=== PATIENT | male | born 1955 | race Caucasian/White ===

== ENCOUNTER 2020-12-25 09:35 | Outpatient (CLI) | payer MEDICARE, SELFPAY ==
--- NOTE | 2020-12-25 08:45 | DI.RAD_ITS ---
Exam(s) XR ANKLE LT COMPLETE EXAM: XR ANKLE LT COMPLETE CLINICAL HISTORY: left ankle pain. TECHNIQUE: 2D digital imaging was performed. COMPARISON: No exams were available for comparison FINDINGS: There is no evidence of acute fracture. No widening of the mortise. Some degenerative changes are n oted in the tibiotalar joint, mostly medially and also anteriorly. Subtalar joint appears unremarkab le. No osseous tarsal coalition. A prominent os trigonum is noted posteriorly. Calcification is no kumar in the plantar fascia approximately 1 cm anterior to the inferior calcaneal spur. IMPRESSION: DATA REPOSITORY: RADIATION DOSE DELIVERED:
--- NOTE | 2020-12-25 08:45 | DI.RAD_ITS ---
Exam(s) XR KNEE LT 4V AP,LAT,DELIA,PAT EXAM: XR KNEE LT 4V AP,LAT,DELIA,PAT CLINICAL HISTORY: left knee pain. TECHNIQUE: 2D digital imaging was performed. COMPARISON: No exams were available for comparison FINDINGS: Five views of the left knee reveal no evidence of fracture. There is a small joint effusion. There are significant osteoarthritic degenerative changes. There is moderate narrowing of the lateral comp artment. Mild narrowing of the medial compartment. Severe degenerative changes are noted in the pat ellofemoral compartment, mostly in the lateral aspect of this compartment. There is [id number] adrian osition this level and there is approximately 1 centimeter lateral deviation of the patella relative to the intercondylar fossa. Are also marginal osteophytes off both sides of the patella, lateral lar michaela than medial. There is also a 5 x 4 millimeter calcific density seen just posterior to the latera l patellar osteophyte. This is best seen on the merchant's view. IMPRESSION: Significant degenerative changes as described above. DATA REPOSITORY: RADIATION DOSE DELIVERED:
== END 2020-12-25 09:36 | disposition home or self-care (01) ==
LOC: DIORS 09:36
PROVIDERS: PCP Family Medicine; Referring Provider Family Medicine; Visit Provider Student in an Organized Health Care Education/Training Program
DX: M25.562 Pain in left knee (principal); M25.572 Pain in left ankle and joints of left foot; M22.8X2 Other disorders of patella, left knee; M17.12 Unilateral primary osteoarthritis, left knee; M24.072 Loose body in left ankle; X58.XXXA Exposure to other specified factors, initial encounter
CPT/HCPCS: 99203; 73564; 73610

== ENCOUNTER 2021-01-23 01:30 | Outpatient (CLI) | payer MEDICARE, SELFPAY ==
--- NOTE | 2021-01-23 06:45 | DI.MRI_ITS ---
Exam(s) MR LOWER JOINT LT WO EXAM: MR LOWER JOINT LT WO CLINICAL HISTORY: LT KNEE DJD, KNEE PAIN, LOOSE BODY LT ANKLE,M24.072,M17.12 TECHNIQUE: Multiplanar multisequence MRI was performed without intravenous contrast. COMPARISON: CR XR ANKLE LT COMPLETE from 12/25/2020 CR XR ANKLE LT COMPLETE from 12/25/2020 FINDINGS: BONES/JOINTS: No fracture or contusion pattern. There is marrow edema and subchondral cyst in the lat eral process of the talus and its articulation with the lateral calcaneus. There is also mild subcho ndral edema at the posterior talocalcaneal articulation. There are also subchondral cysts seen in th e distal fibula. Degenerative signal changes are also seen at the 2nd TMT joint. The talar dome is smooth. The ankle mortise is maintained. No joint effusion is present. LIGAMENTS: The tibiofibular and calcaneofibular ligaments are intact. There is a sprain of the steward/stewardess room ior talofibular ligament. The anterior talofibular ligament is intact. The deltoid ligament is inta ct. The syndesmosis is unremarkable. Sinus tarsi is normal. MUSCULOTENDINOUS STRUCTURES: Achilles tendon: There is mild hyperintense signal seen in the distal Achilles tendon which may refle ct a small tear versus degeneration. Plantar fascia: Unremarkable. Anterior Extensor tendons: Unremarkable. Posterior Tibialis: Unremarkable. Flexor Digitorum longus: Unremarkable. Flexor Hallucis longus: There is a complete tear of the flexor hallucis longus tendon. The proximal tendon in the lies approximately 3.3 cm above the talar dome best appreciated on the sagittal images. The distal tendon segment is seen on the plantar surface of the foot inferior to the sustentacular ryan (series 7001, image 25). Peroneus longus: Unremarkable. Peroneus brevis:Unremarkable. SOFT TISSUES: Unremarkable. OTHER FINDINGS: No loose body is appreciated within the ankle joint. There is a small amount of flui d seen around the prominent os trigonum, but there is normal marrow signal of the ossicle. IMPRESSION: 1. Complete tear of the flexor hallucis longus tendon with large gap between the tendon ends as descr ibed above. 2. Findings suspicious for partial tear or degeneration of the Achilles tendon. 3. No loose body is seen in the ankle joint. 4. Degenerative changes in the foot and ankle as described. 5. Findings suspicious for sprain of the posterior talofibular ligament. DATA REPOSITORY:
== END 2021-01-23 01:50 ==
PROVIDERS: PCP Family Medicine; Visit Provider Student in an Organized Health Care Education/Training Program
DX: M17.12 Unilateral primary osteoarthritis, left knee (principal); M24.072 Loose body in left ankle; S96.912A Strain of unspecified muscle and tendon at ankle and foot level, left foot, initial encounter; M19.072 Primary osteoarthritis, left ankle and foot
CPT/HCPCS: 73721

== ENCOUNTER → 2021-01-26 09:35 | Outpatient (BNVA) | payer MEDICARE, SELFPAY | PROVIDERS: PCP Family Medicine; Referring Provider Family Medicine; Visit Provider Student in an Organized Health Care Education/Training Program | DX: M17.12 Unilateral primary osteoarthritis, left knee (principal); Q68.8 Other specified congenital musculoskeletal deformities; S96.092 Other injury of muscle and tendon of long flexor muscle of toe at ankle and foot level, left foot; X58.XXXD Exposure to other specified factors, subsequent encounter | CPT/HCPCS: 20610; J1040 ==

== ENCOUNTER 2021-02-08 02:10 | Outpatient (CLI) | payer MEDICARE, SELFPAY ==
--- NOTE | 2021-02-08 10:01 | DI.RAD_ITS ---
Exam(s) XR FINGER RT LITTLE EXAM: XR FINGER RT LITTLE CLINICAL HISTORY: RT 5TH MALLET FINGER, ? ASSOCIATED FX,M20.011. TECHNIQUE: 2D digital imaging was performed. COMPARISON: No exams were available for comparison FINDINGS: No evidence of fracture or dislocation. There is an element of flexion deformity at the DIP joint of the 5th finger. There is no associated fracture. No osseous lesions. Incidentally noted is degenerative change in the proximal interphalangeal joint of the 5th finger. A lso within the metacarpophalangeal joint of the 3rd-middle finger. IMPRESSION: DATA REPOSITORY: RADIATION DOSE DELIVERED:
== END 2021-02-08 02:30 ==
PROVIDERS: PCP Family Medicine; Visit Provider Family Medicine
DX: M20.011 Mallet finger of right finger(s) (principal); M19.041 Primary osteoarthritis, right hand
CPT/HCPCS: 73140

== ENCOUNTER 2021-12-03 14:17 | Outpatient (CLI) | payer MEDICARE, SELFPAY ==
--- NOTE | 2021-12-03 13:15 | DI.RAD_ITS ---
Exam(s) XR KNEE LT 1V XR STANDING ALIGNMENT EXAM: XR STANDING ALIGNMENT and XR knee LT 1 V CLINICAL HISTORY: TKA planning. TECHNIQUE: 2D digital imaging was performed. Five images were obtained. COMPARISON: CR XR KNEE LT 4V AP,LAT,DELIA,PAT from 12/25/2020 FINDINGS: BONES: The patient has bilateral total hip replacements. Mild degenerative changes are seen in the r ight knee with joint space narrowing and periarticular spurring. The findings are most marked in the medial femoral tibial joint. In the left knee there is periarticular spurring in all 3 joint compar tments. There is moderate narrowing of the lateral femoral tibial joint. There is a moderate joint effusion. The ankles are well maintained.There is no significant leg length discrepancy. SOFT TISSUE: Normal. IMPRESSION: Osteoarthritis of the knees bilaterally, left greater than right. DATA REPOSITORY: RADIATION DOSE DELIVERED:
== END 2021-12-03 14:18 | disposition home or self-care (01) ==
LOC: DIORS 14:18
PROVIDERS: PCP Family Medicine; Referring Provider Family Medicine; Visit Provider Physician Assistant
DX: M17.12 Unilateral primary osteoarthritis, left knee (principal); Z95.5 Presence of coronary angioplasty implant and graft
CPT/HCPCS: 99213; 73560; 77073

== ENCOUNTER → 2022-01-24 14:02 | Outpatient (BNVA) | payer MEDICARE, SELFPAY | PROVIDERS: PCP Family Medicine; Referring Provider Family Medicine; Visit Provider Physician Assistant | DX: M17.12 Unilateral primary osteoarthritis, left knee (principal) | CPT/HCPCS: 99213 ==

== ENCOUNTER 2022-01-28 02:33 | Outpatient (CLI) | payer MEDICARE, SELFPAY ==
[2022-01-28 11:01] LABS: HCT 35.4 % (40.0-50.0); HGB 12.3 g/dL (13.5-17.5); MCH 31.9 pg (27.0-33.0); MCHC 34.7 % (32.0-36.0); MCV 92 fL (80-95); MPV 8.6 fL (8.0-11.0); Platelet Count 129 10^3/uL (130-400); RBC 3.86 10^6/uL (4.36-5.78); RDW 13.1 % (11.8-14.1); RDW-SD 43.3 fL; WBC 6.52 10^3/uL (4.4-10.8)
[2022-01-28 11:32] LABS: Anion Gap 6.3 mmol/L (3-11); BUN 26 mg/dL (7-18); CO2 26.7 mmol/L (21.0-32.0); CREATININE 1.3 mg/dL (0.70-1.30); Calcium 9.3 mg/dL (8.5-10.1); Chloride 104 mmol/L (98-107); Estimated GFR 60.21 (mL/min/1.73m2); Glucose 123 mg/dL (74-106); Potassium 4.1 mmol/L (3.5-5.1); Sodium 137 mmol/L (136-145)
== END 2022-01-28 02:34 | disposition home or self-care (01) ==
LOC: LBO 02:34
PROVIDERS: PCP Family Medicine; Visit Provider Student in an Organized Health Care Education/Training Program
DX: M17.12 Unilateral primary osteoarthritis, left knee (principal); Z01.818 Encounter for other preprocedural examination
CPT/HCPCS: 36415; 80048; 85027

== ENCOUNTER 2022-01-29 09:43 | Day surgery (SDC) | payer MEDICARE, SELFPAY ==
[2022-01-29] VITALS (9 sets, daily range): BP systolic 113–153; BP diastolic 55–77; PULSE 46–59; RESP 11–18; TEMP 35.9–37; O2SAT 97–99; BMI 43.3
[2022-01-29] MEDS: Gabapentin 300 MG CAP PO (10:44)
[2022-01-29] MEDS: Acetaminophen 500 MG TAB 1000 MG PO (10:44)
[2022-01-29] MEDS: Celecoxib 200 MG CAP 400 MG PO (10:45)
[2022-01-29] MEDS: Lactated Ringers 1,000 ML 80 ML IV (10:58)
--- NOTE | 2022-01-29 11:15 | W.ANESPRE ---
General Info Date of Service Date Performed: 01/29/22 Height: 5 ft 5.2 in Weight: 118.8 kg Body Mass Index (BMI): 43.3 Surgical Procedure: Operation Date: 01/29/22 13:10 Proposed Procedure Side Surgeon p Knee Total Arthroplasty w/OrthoAlign Cementless PS Left River Corado MD Meds Allergies and Home Medications Allergies Allergy/AdvReac Type Severity Reaction Status Date / Time atorvastatin calcium AdvReac Per pt, Verified 01/29/22 10:16 [From Lipitor] states myalgia hydrochlorothiazide AdvReac Per pt. Verified 01/29/22 10:16 states: affects his spleen causing jaundice, and h Home Medication Medication Instructions Recorded Ezetimibe/Simvastatin 1 ea PO DAILY 03/17/17 [Ezetimibe-Simvastatin 10-80 mg] Nitrostat 0.4 mg sublingual tablet 0.4 mg sublingual DIRECTED 03/17/17 (nitroglycerin) aspirin 325 mg tablet 325 mg PO DAILY 03/17/17 atenolol 50 mg tablet 25 mg PO BID 03/17/17 clopidogrel 75 mg tablet 75 mg PO DAILY 03/17/17 lisinopril 20 mg tablet 20 mg PO DAILY 03/17/17 multivitamin 1 ea PO DAILY 03/17/17 ferrous sulfate 142 mg (45 mg 142 mg PO DAILY 01/24/22 iron) tablet,extended release (Slow Release Iron) Current Visit Medications: Current Medications Generic Name Dose Route Start Last Admin Trade Name Freq PRN Reason Stop Dose Admin Acetaminophen 1,000 mg 01/29/22 06:00 01/29/22 10:44 Acetaminophen 500 Mg Tab PO 01/29/22 18:00 1,000 mg PREOP OSVALDO Administration Celecoxib 400 mg 01/29/22 06:00 01/29/22 10:45 Celecoxib 200 Mg Cap PO 01/29/22 18:00 400 mg PREOP OSVALDO Administration Gabapentin 300 mg 01/29/22 06:00 01/29/22 10:44 Gabapentin 300 Mg Cap PO 01/29/22 18:00 300 mg PREOP OSVALDO Administration Tranexamic Acid 1,000 mg/ 60 mls @ 360 mls/hr 01/29/22 06:00 Sodium Chloride IVPB 01/29/22 18:00 PREOP OSVALDO Ringer's Solution 1,000 mls @ 80 mls/hr 01/29/22 06:00 01/29/22 10:58 IV 02/27/22 23:59 80 mls/hr INFUSION OSVALDO Administration Cefazolin Sodium/Dextrose 2 gm in 50 mls @ 100 mls/hr 01/29/22 06:00 Ancef Duplex IVPB 01/29/22 16:00 PREOP OSVALDO IV Miscellaneous Supplies 1 each 01/29/22 06:00 Iv Access IV 02/27/22 23:59 DIRECTED OSVALDO Sodium Chloride 0 ml 01/29/22 06:00 Normal Saline Flush 10 Ml Syr IV 02/27/22 23:59 PRN PRN Sodium Chloride 0 ml 01/29/22 06:00 Normal Saline 10 Ml Vial IJ 02/27/22 23:59 DIRECTED PRN Sterile Water 0 ml 01/29/22 06:00 Water,Injection,Sterile 10 Ml Vial IJ 02/27/22 23:59 DIRECTED PRN PFSH Active Problems Active Problems: Problem Status Onset Code 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 01/29/22 pt reports he has expereinced some delay coming out of anesthesia. Surgical History Surgical History (Updated 01/29/22 @ 11:06 by Eun Mosquera RN) Biopsy, Soft Tissue (04/03/17) left arm - benign verruciform keratosis Coronary Stent 01/29/22 pt reports he has had 4 stents, 2000, 2010, 2013 H/O total hip arthroplasty Repair, Undescended Testicle Total replacement of hip right left Tobacco Smoking/Tobacco Use Status: Never Alcohol Alcohol Intake: current Alcohol intake frequency: 0-2 drinks per day Alcohol type: beer Substance Use Substance use: Never Substance use type: does not use Vital Signs and Lab Results Vital Signs Most Recent Vital Signs in EMR: Most Recent Vital Signs Temp Pulse Resp BP Pulse Ox 36.5 C 46 L 16 138/58 L 98 01/29/22 10:21 01/29/22 10:21 01/29/22 10:21 01/29/22 10:21 01/29/22 10:21 Lab Results Blood Type / Crossmatch: No Data to Display Complete Blood Count: White Blood Count 6.52 10^3/uL (4.4-10.8) 01/28/22 10:53 Red Blood Count 3.86 10^6/uL (4.36-5.78) L 01/28/22 10:53 Hemoglobin 12.3 g/dL (13.5-17.5) L 01/28/22 10:53 Hematocrit 35.4 % (40.0-50.0) L 01/28/22 10:53 Platelet Count 129 10^3/uL (130-400) L 01/28/22 10:53 Complete Metabolic Panel: Sodium 137 mmol/L (136-145) 01/28/22 10:53 Potassium 4.1 mmol/L (3.5-5.1) 01/28/22 10:53 Chloride 104 mmol/L (98-107) 01/28/22 10:53 Carbon Dioxide 26.7 mmol/L (21.0-32.0) 01/28/22 10:53 BUN 26 mg/dL (7-18) H 01/28/22 10:53 Creatinine 1.3 mg/dL (0.70-1.30) 01/28/22 10:53 Est GFR (CKD-EPI 2020) 60.21 (mL/min/1.73m2) 01/28/22 10:53 Calcium 9.3 mg/dL (8.5-10.1) 01/28/22 10:53 Glucose 123 mg/dL (74-106) H 01/28/22 10:53 Liver Function Panel: No Data to Display Coagulation Panel: No Data to Display Cardiac Panel: No Data to Display Arterial Blood Gas: No Data to Display Venous Blood Gas: No Data to Display Pancreas Panel: No Data to Display Thyroid Panel: No Data to Display Infectious Disease: No Data to Display Blood Cultures: No Data to Display Toxicology Panel: No Data to Display Imaging and Studies Imaging and Studies Study information below may be from another EMR and interpreted by another provider. Please see original notes in EMR for more complete details. Stress Test Summary: 01/18/2022: Myocardial perfusion images show infero-apical fixed defect, no reversible ischemia. No significant changes from previous. Echocardiogram Summary: 08/28/2021: EF 59%, Grade II diastolic dysfunction Anesthesia Assessment and Plan Anesthesia History Personal History: No History of Anesthesia Complications Family History: No Family History of Anesthesia Complications Exercise Tolerance Exercise Tolerance: Metabolic Equivalents>4 Pertinent Negatives Pertinent Negatives: No Symptoms of GERD, No Major Cardiovascular Symptoms or Complaints, No Major Pulmonary Symptoms or Complaints and No History of CVA/TIA Cardiac & Pulmonary Exam Cardiac Exam: Normal S1/S2 Heart Sounds Pulmonary Exam: Clear Bilateral Breath Sounds Implantable Cardiac Device Does patient have a Pacemaker or an ICD?: No Airway Exam Known Difficult Airway: No Mallampati Class: 3 Mouth Opening: Narrow (< 3cm) Thyromental Distance: Less than 3 cm Neck Range of Motion: Full ROM Neck Circumference: Thick Teeth Condition: Normal Dentition ASA Classification ASA Score: ASA 3 Emergency Case?: No NPO Status NPO Status: NPO Clears >2 hours, Solids >8 hours Anesthesia Plan Resuscitation Status: Full Code Anesthesia Technique: Spinal Anesthesia Airway Planned: Natural Airway Pain Management: Surgeon and patient request nerve block Monitors Used: Standard Monitors Preoperative Comments:: hx of ASCVD,cardiac stenting ( 2000,2010,2013,2014) on chronic plavix, thrombocytopenia, mild diastolic dysfunction.
[2022-01-29] MEDS: Aspirin 325 MG TAB PO (12:00)
[2022-01-29] MEDS: ceFAZolin 2 GM/50 ML BAG IVPB (12:45)
--- NOTE | 2022-01-29 13:23 | W.ANESNERVE ---
Nerve Block Single Injection Procedure Date and Time Date Performed: 01/29/22 Procedure Start: 11:30 Location Where Procedure Performed Procedure Location: Day Surgery Unit Reason Performed: Postoperative Analgesia Requesting Provider: River Corado Timeout Performed Timeout Performed: Yes Monitoring Used ECG, Blood Pressure, SpO2 and See EMR for corresponding vital signs Sterility Sterility: Hand Hygiene, Surgical Cap, Surgical Mask, Sterile Gloves, Eye Protection and Chlorhexidine Sedation Given During Procedure Sedation Given (Indicate Dose Given): No Sedation given Patient Mental Status Patient Mental Status: Awake Nerve Block 1st Nerve Block: Laterality: Left Block Type: Adductor Canal Needle / Catheter Used: 100mm SonoPlex II Local Anesthetic Bolus (Indicate Dose Given): Lidocaine used for local infiltration of skin and Bupivacaine 0.25% Dose:: 15ml Additives (Indicate Dose Given): None Ultrasound: Sterile probe cover and gel used Ultrasound Image Saved?: Yes Nerve Stimulator: Not Used Paresthesia: Left (Needle Reposition) Paresthesia Duration: Transient Procedure Tolerated: No Complications and Patient tolerated well Procedure Outcome: Successful Performed By: Shellie Rose Supervised By: Amisha Monte
--- NOTE | 2022-01-29 14:45 | W.PM.DSUDISC ---
Date of service: 01/29/22 Time of Service: 14:45 Discharge Plan Disposition Patient Disposition: HOME Condition: Good Discharge Details Reason For Visit: L TKR Attending Provider: River Corado Primary Care Provider: Suresh Jaime Home Meds and New Rx's Prescriptions: New celecoxib 200 mg capsule 200 mg PO BID Qty: 60 0RF acetaminophen 500 mg tablet 1,000 mg PO TID Qty: 90 3RF pantoprazole 40 mg tablet,delayed release (DR/EC) 40 mg PO DAILY Qty: 30 0RF dexamethasone [Decadron] 4 mg tablet 4 mg PO DAILY Qty: 2 0RF gabapentin 300 mg capsule 300 mg PO QHS Qty: 14 0RF oxycodone 5 mg tablet 5 mg PO Q4H MDD 6 tabs PRN (Reason: pain) Qty: 20 0RF Continued Slow Release Iron 142 mg (45 mg iron) tablet extended release 142 mg PO DAILY aspirin 325 MG tablet 325 mg PO DAILY lisinopril 20 MG tablet 20 mg PO DAILY clopidogrel 75 MG tablet 75 mg PO DAILY nitroglycerin [Nitrostat] 0.4 MG tablet, sublingual 0.4 mg Sublingual DIRECTED multivitamin 1 EACH capsule 1 ea PO DAILY atenolol 50 MG tablet 25 mg PO BID Ezetimibe/Simvastatin [Ezetimibe-Simvastatin 10-80 mg] 1 EACH tablet 1 ea PO DAILY Discharge Instructions Additional Instructions: Total Knee Discharge Instructions Activity: The most important activity is to walk and to work on gentle motion (both flexion and extension). You should try to take short walks a few times a day. It is important that when resting you work on keeping the knee straight. Avoid putting a pillow behind the knee as this will encourage flexion. Work on range of motion exercises as provided by Physical Therapy. - Start outpatient physical therapy within 2 weeks. - You should wear the BILLIE hose on both legs for 2 weeks. You may remove these at night. You may also use any compression sock in place of the BILLIE hose. - Utilize [employer] to review exercises, see videos on exercises and obtain basic information pertaining to your surgery and your recovery. Dressing: Remove the Mekhi wrap by 2 days after your surgery and put on the BILLIE stocking given to you from the hospital. Keep the surgical dressing (underneath the MEKHI wrap) in place for at least one week. After the first week it may be removed and replaced with light gauze and tape or nothing. The wound and dressing may get wet after 3 days but avoid soaking the dressing or otherwise it will need to be changed. Many people prefer covering the dressing with cling wrap (saran wrap) to minimize it from getting soaked. If it gets wet, just pat dry. If it starts to peel off then it will need to be changed. Medications: - You should take Tylenol and anti-inflammatory Celebrex as your primary pain control medications. If the Celebrex is too expensive or not covered, please call the office for another alternative (Advil/Ibuprofen or Naproxen/Aleve) - You have been prescribed a stronger pain medication Oxycodone for breakthrough pain, take as needed as prescribed. - You have also been prescribed a stomach acid reduction agent Pantoprozole to help reduce stomach acid and reflux. - You have been prescribed Gabapentin to take at night for restlessness and nerve pain. - You will be continuing your clopidogrel and asprin for DVT prevention unless instructed otherwise. - You have also been prescribed Decadron to take to control post-operative nausea and pain. You will start this tomorrow. - If you have constipation you should take Colace or Miralax (both [id number]). It takes most people 3-4 days to have a bowel movement. Follow-up: 2 weeks If you have any acute concerns or questions, please do not hesitate to contact the office at [phone]. You may contact Dr. Corado with any questions after hours through the hospital at [phone] or on his cell phone at [phone]. Stand Alone Forms: Anesthesia Discharge Inst., [facility].Nerve Block Instructions, [facility] ([facility]) Referrals: River Corado MD [ [facility] STAFF PHYSICIAN] - Equipment/Supplies: Walker Activity:: Activity as Tolerated Remove Dressings/Wound Care:: Do Not Remove Shower/Bathe:: 72 hours Diet:: As Tolerated Discharge Orders Discharge Orders: Discharge Order (Routine); Ordered 01/29/22 Ordered By: Mitchel Casas DS: Diagnosis Discharge Diagnosis (1) Left knee DJD: Status: Acute
--- NOTE | 2022-01-29 14:50 | W.ANESPOSTOP ---
Postoperative Evaluation Date, Time and Location Date Performed: 01/29/22 Time Performed: 14:50 Patient Location: PACU Vital Signs Most Recent Imported Vital Signs: Most Recent Vital Signs Temp Pulse Resp BP Pulse Ox 36.5 C 53 L 18 150/60 H 98 01/29/22 14:40 01/29/22 14:40 01/29/22 14:40 01/29/22 14:40 01/29/22 14:40 Pain Score Most Recent Pain Score: Most Recent Pain Score Pain Level 5 01/29/22 14:40 Assessment Mental Status: Awake (Alert & Oriented to Patient Baseline) Airway and Respiratory Function: Patent airway with normal (patient baseline) respiratory exam Cardiovascular Function: Hemodynamically Stable Hydration Status: Adequately Hydrated Nausea & Vomiting: No Nausea or Vomiting Pain: Pain is Moderate or Severe Postoperative Pain Management: Pain being addressed with medication Peripheral Nerve Block: Regional nerve block not resolved at time of post operative discharge
[2022-01-29] MEDS: Normal Saline 10 ML VIAL IJ (14:54)
[2022-01-29] MEDS: HYDROmorphone 2 MG/ML SYR IVP ×2 (14:54→15:06)
--- NOTE | 2022-01-29 15:43 | ROE_ITS ---
Date of service: 01/29/22 Time of Service: 14:00 Operative Note Operative Note DATE OF PROCEDURE: 01/29/22 PRE-OP DIAGNOSIS: Left Knee Osteoarthritis with Valgus Deformity POST-OP DIAGNOSIS: same PROCEDURE: Left Total Knee Replacement with Intraoperative Navigation SURGEON: River Corado MANUFACTURING TECH: Rica Casas ANESTHESIA TYPE: Spinal Refer to Anesthesia Record ESTIMATED BLOOD LOSS: 150 PATHOLOGY: none sent TOURNIQUET TIME: 0 COMPLICATIONS: None Patient was transported to: PACU Patient's condition: stable Implants: 1. Depuy Attune Cementless Posterior Stabilized Femoral Component, Size 7 2. Depuy Attune Cementless Rotating Platform Tibial Component, Size 6 3. Depuy Attune 7x6 PS/RP Poly 4. Depuy Attune Patellar Component, Size 38 Indications: I have seen Luis M in clinic for symptoms of LEFT knee arthritis, confirmed with radiographic findings. Luis M has exhausted nonoperative methods and was having significant limitations in daily function and desired better function and less pain. I discussed the technical details of a knee replacement. I explained the risks of the procedure to include, but not limited to, bleeding, infection, pain, stiffness, fracture, damage to nerves and vessels, damage to muscles and tendons, loosening, need for repeat procedure, blood clot and cardiopulmonary demise. Despite these risks, he elected to proceed. Findings: There was significant signs of arthritis throughout the knee involving all 3 compartments with a deficient lateral tibia. Procedure Description: Luis M was greeted in the preoperative holding area where the correct side was identified and marked. The consent was reviewed with the patient and signed. The history and physical was updated. All questions were answered. Preoperativ e mediacations were administered: Acetaminophen 1000mg, Celebrex 400mg, and Gabapentin 300mg. An adductor canal block was then administered by the anesthesia team in the PACU. Luis M was taken back to the operating room. A spinal anesthestic was then administered. The patient was placed into the supine position on the operating room table. A nonsterile tourniquet was placed high onto the leg. Posts were placed for positioning during the procedure. All bony prominences were well padded. Prophylactic antibiotics in the form of Cefazolin were administered. 1g of Tranxemic Acid was given intravenously within 30 minutes of incision. The left leg was then prepped with Chloraprep and draped in a standard fashion with impervious stockinette. A second prep with Chloraprep was performed prior to application of Iodine impregnated skin protection. A timeout to confirm correct identity, side and site, procedure, allergies, anesthesia, and medical concerns was performed. With the knee in some flexion, a midline incision was made overlying the knee. Full thickness skin flaps were raised once the extensor mechanism was encountered. These were raised medially and laterally. Any bleeding was controlled with electrocautery. Once the extensor mechanism was fully exposed, a medial parapatellar arthrotomy was performed in a flexed position. All bleeding from the arthrotomy and the geniculate arteries was coagulated. A medial subperiosteal peel was performed with electrocautery to the midcoronal plane. The fat pad was removed while keeping the patellar tendon protected. The anterior distal femur synovium was removed for later visualization. The ACL and PCL were resected and the anterior horn of the lateral meniscus was transected. The knee was then flexed with the patella everted. Large osteophytes from the tibia were removed. Large osteophytes from the femur were removed. A single starting pin was then placed 1cm anterior to the PCL insertion and the notch in the direction of the femoral head. The OrthoAlign device was applied over the pin. It was oriented to be in line with the epicondylar axis and the trochlear groove. It was then pinned into place. The navigation computer was then turned on and calibrated. The distal femur cut was set at 0 degrees varus/valgus and 2.5 degrees flexion. The distal femur cutting guide then was positioned for a 9mm cut. The distal femur was cut with an oscillating saw while protecting the soft tissues. The tibia was then addressed. The OrthoAlign device was placed over the tibial tubercle and medial tibia and secured into position. Once again, OrthoAlign was calibrated and then set for a 0 degree varus/valgus cut and 5 degrees of posterior slope. With this locked into position, the cut thickness stylus was used to assess cut thickness. The posterolateral tibia, most involved segment, was set for a 2mm cut. This was then held in position and pinned into place with 2 additional pins and a cross pin for stability. The medial and lateral collateral ligaments were protected and the cut was performed. With this completed, it was assessed and noted to be of appropriate dimensions. The guide and OrthoAlign was removed. A spacer block was inserted and the knee was brought into extension. The 6mm spacer block provided full extension, without hyperextension and with stability of both the medial and lateral collateral ligaments was assessed. The pins from the femur and the tibia were then removed. The distal femur was then sized. The anterior stylus was placed onto the lateral ridge of the anterior femur. This indicated a size 7 femur. The external rotation of the guide was adjusted to 3 degrees to match the epicondylar axis, perpendicular to [place]?s line. The 4-in-1 cutting guide was the placed. The posterior medial femur cut was evaluated and appeared of good thickness. The spacer block was inserted underneath the cutting guide and stability was confirmed in 90 degrees of flexion. An cheryl wing was used to confirm appropriate position of the anterior cut to avoid notching. This cutting guide was ensured to be flush on the cut surface and then pinned into place with headed pins. While protecting the soft tissues, quad tendon, and collateral ligaments, the anterior and posterior cuts were performed with a saw. The central two pins were removed and the posterior and anterior chamfers were cut next. The notch-cutting guide was placed. This was pinned to lateralize the femoral component as much as possible while keeping it flush on the cut surface. This was then pinned into position. A reciprocating saw was used to make the notch cut. A rasp smoothed the cut surfaces. The medial and lateral menisci were removed. A trial femoral component was then inserted, impacted down to the cut surfaces, and the lug holes were drilled. A provisional trial tibial component was placed and the knee was brought through range of motion. There was noted to be excellent extension and flexion. There was no significant instability. The patella was tracking without thumbs. A size 6mm polyethylene component provided the best range of motion and stability with less than 2mm gapping with medial and lateral stress and full extension without significant hyperextension. The tibial cut surface was fully exposed. The tibia was then sized as a 6. The tibia had been previously marked during trialing to correspond to the center of the tibial component to help with rotation. The trial was aligned to this rica, approximately rotated to the medial 1/3rd of the tibial tubercle. The trial was pinned into place. The tibia was prepared with a reamer and a keel punch and lug holes. The knee was then brought into extension and the patella was measured as 27mm but with a lateral depression only 15mm thick. Using the patellar clamp and cut guide, this was resected to a flat surface with at least 13mm of thickness remaining. The size 38 patella fit the best. This was oriented and then clamped into position. The lugs were drilled. The trial components were removed. The final components were opened on the back table. The periosteal and capsular tissues, especially posteriorly, around the knee were then systematically injected with a periarticular cocktail consisting of 246mg of Ropivacaine, 0.5mg of Epinephrine, 0.08mg of Clonidine, and 30mg of Ketorolac, diluted to 100cc. On the back table, with the implants opened, the cement was mixed. One batch of high viscosity cement was prepared with vacuum assistance. After the cement was ready a small amount was placed on the cut surface of the patella and the patellar button was clamped into position and held. While the cement was hardening, the cementless knee components were placed. Starting with the tibial component, the tibia was subluxed anteriorly and the lug holes of the component were lined up. The tibia was then impacted with an impactor and mallet until the tibial component was in contact with the tibia. Then, the femoral component was inserted. The lug holes were aligned and the component was impacted into position. The final polyethylene component was inserted. The knee was irrigated with Surgiphor Betadine solution. This was allowed to sit in the knee for 3 minutes and then it was thoroughly irrigated out with saline. After the cement had finally cured, approximately 15min, the clamp was removed from the patella and the knee was taken through range of motion. The patella was tracking with a no-thumbs technique. The capsule was then reapproximated with a No. 1 Vicryl at multiple locations. The capsule was finally closed with a No. 2 Stratafix, barbed suture. The second dosing of 1g TXA was started. Deep tissues were then reapproximated with 0 Vicryl and 2-0 Vicryl. The skin was closed with a running 3-0 Monocryl in a subcuticular fashion. This was reinforced with skin glue. A Mepilex silver dressing was applied along with a [id number] TRINITY wrap. A CryoCuff was applied. Luis M was transferred to the hospital bed without difficulty an suffering no apparent complication. Luis M has a good prognosis. Physical therapy will start today and without restrictions, weight-bearing as tolerated. His baseline Plavix and Aspirin will be used for DVT prophylaxis.
[2022-01-29] MEDS: oxyCODONE 5 MG TAB PO (15:52)
--- NOTE | 2022-01-29 16:30 | PT.INIE ---
Date of service: 01/29/22 Time of Service: 16:30 PT Notes Visit Reasons: L TKR Physical Therapy Day Surgery Initial Evaluation Date: 01/29/2022 Referring Doctor: LUIS FERNANDO Davis PT Orders: PT CONSULT: S/P Ortho Surgery Precautions: WBAT on L LE with AD. Patient Profile/Admitting Diagnosis: Hilton is a 67-year-old male with degenerative joint disease of the left knee and is status post left total knee arthroplasty on postoperative day 0. PMHX: All Active Problems?(Updated 05/21/21 @ 12:09 by Becca Madrid) Tear of right hamstring (Acute 04/25/21) Other injury of muscle and tendon of long flexor muscle of toe at ankle and foot level, left foot, initial encounter (Acute) Os trigonum syndrome (Acute) Loose body in left ankle (Acute) Left knee DJD (Acute) Maltracking of left patella (Acute) Medical History? ASCVD (arteriosclerotic cardiovascular disease) Eczema Hyperlipidemia Left knee DJD Loose body in left ankle Maltracking of left patella Mild diastolic dysfunction Mild hypertension Obesity Sleep apnea Tubular adenoma of colon Undescended testicle Surgical History? Biopsy, Soft Tissue (04/03/17) left arm - benign verruciform keratosis Coronary Stent Repair, Undescended Testicle Total replacement of hip right Social History/Home Situation: Lives alone in a mobile home with 2 steps to enter without rails. 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 Independent with all aspects prior to surgery. Has had increasing inability to manage steps prior to surgery. No falls in the past year. Son lives half an hour away can may be able to help as needed. Equipment Owned/DME: [facility], [facility] Subjective: Reports mild ache on the left hip and numbness on the sole of the left foot. Reported fatigue and mild lightheadedness at the end of session, nurse Sharron aided immediately. States that he has accessed the [employer] adrian already regarding exercises. Objective: General Observation: Supine on stretcher. TRINITY wraps to left LE. Cryocuff to left knee. TEDS on the right leg. Mental Status: Alert and oriented x4 Pain: 2-3/10 in the left knee ROM: Right Lower Extremity: Hip flexion WFL. Hip abduction WFL. Knee flexion WFL. Ankle dorsiflexion WFL. Ankle plantarflexion WFL. Left Lower Extremity: Hip flexion WFL. Hip abduction WFL. Knee flexion 10 degrees to about 100 degrees. Knee extension -10 degrees.. Ankle dorsiflexion WFL. Ankle plantarflexion WFL. Strength: Right Lower Extremity: Hip flexors 5/5. Hip abductors 5/5. Knee flexors 5/5. Knee extensors 5/5. Ankle dorsiflexors 5/5. Ankle plantarflexors 5/5. Left Lower Extremity:Hip flexors 4/5. Hip abductors 4/5. Knee flexors 3-/5. Knee extensors 3-/5. Ankle dorsiflexors 5/5. Ankle plantarflexors 5/5. Sensation: Intact test to pain and light pressure in bilateral lower extremities exam for the left sole of the foot where numbness persists Bed Mobility/Transfers: Supine to sit standby assist Sit to stand standby assist Stand to sit standby assist Bed to chair standby assist Gait: 75 feet with a 75 surface ambulation using front-wheeled walker with step-to gait pattern requiring only standby assist. Reported a mild ache in the left medial groin area and persistent numbness on the sole of the left foot. Complained of fatigue and mild lightheadedness right after activity of which nurse Mcdermott was informed. THERA EX: SLR x 10 Bilateral LAQ x 10 Seated hip flexion x 10 Quadriceps sets x 10 GLuteal sets x 10 Ankle DF/PF x 10 Balance: Static Sitting: Normal Dynamic Sitting: Normal Static Standing: Fair Dynamic Standing: Fair Special Tests: Mobility Limitations Standardized Measure [facility] AM-PAC 6 clicks Basic Mobility Inpatient Short Form: Raw Score: 24 CMS Score: 0%deficit Informed Consent/Education: Patient instructed in purpose of PT consult. Education and training on initial set of exercises that can be done at home have been completed with patient with reference to the [employer] adrian. Assessment: Patient requires the use of front wheeled walker for all mobility ADL performance reduce fall risk and maximize independence. Patient presents with clinical signs and symptoms consistent with current/admitting diagnoses that have resulted to mobility limitations, gait instability, generalized weakness, and impairment of motor control as demonstrated by the following impairment level findings: 1. Decreased strength to left knee major muscle groups 2. Impaired standing balance 3. Limitation of joint range of motion in left knee Impairments are contributing to the following functional limitations: 1. Inability to safely ambulate without assistive device 2. Increase completion time for mobility ADL performance 3. Increased fall risk Patient is assessed as a 18155 moderate complexity based on the following: History: 67-year-old female with impairment level findings, functional limitations, and past medical history as indicated above Examination: Demonstrable impairment in strength, balance, and mobility level with underlying impairments and functional limitations as documented above Presentation: Evolving Decision Makin moderate complexity Goals: N/A. PT evaluation and 1-2 treatment sessions only for functional mobility training using recommended AD and for HEP instruction. Plan of Care/Treatment Plan: N/A. PT evaluation and 1-2 treatment session only for functional mobility training using recommended AD and for HEP instruction. DISCHARGE RECOMMENDATIONS: [] Home with no services [] [] Home with services [specify] [X] Home with outpatient PT. Home when medically cleared by orthopedic surgeon. Will benefit from outpatient PT services in order to maximize functional mobility outcomes and facilitate independent community ambulation without assistive device. [] SNF for continued rehabilitation [] [] [facility] [] [] SNF versus LTC based on ability to participate and progress [] TREATMENT CODE/TIME: 9716 2 x 20 minutes, 9753 0 x 11 minutes beginning at 16:30 PM. Thank you for the opportunity to participate in the care of this patient. Dulce Dodge PT, DPT, CLT [facility] [place], [place]
== END 2022-01-29 17:17 | disposition home or self-care (01) ==
PROVIDERS: PCP Family Medicine; Visit Provider Student in an Organized Health Care Education/Training Program
PROC: (CPT 27447; principal; 2022-01-29 13:00)
DX: M17.12 Unilateral primary osteoarthritis, left knee (principal); I11.0 Hypertensive heart disease with heart failure; I50.30 Unspecified diastolic (congestive) heart failure; I25.10 Atherosclerotic heart disease of native coronary artery without angina pectoris
CPT/HCPCS: 20985; 27447; C1776; 76942; 97162; 97530; J0690; J1100; J1170; J2250; J2405; J2704

== ENCOUNTER 2022-02-08 08:17 | Outpatient (CLI) | payer MEDICARE, SELFPAY ==
--- NOTE | 2022-02-08 08:15 | DI.RAD_ITS ---
Exam(s) XR STANDING ALIGNMENT EXAM: XR STANDING ALIGNMENT CLINICAL HISTORY: 1ST POST OP L TKA. TECHNIQUE: 2D digital imaging was performed. COMPARISON: CR XR STANDING ALIGNMENT from 12/03/2021 FINDINGS: Bilateral hip prostheses again noted. There is recently placed left knee prosthesis which appears satisfactory position on this view. Ther e is mild narrowing of the medial compartment of the opposite-right knee. Ankles unremarkable. IMPRESSION: DATA REPOSITORY: RADIATION DOSE DELIVERED:
--- NOTE | 2022-02-08 08:15 | DI.RAD_ITS ---
Exam(s) XR KNEE LT 1V EXAM: XR KNEE LT 1V CLINICAL HISTORY: 1st post op L TKA. TECHNIQUE: 2D digital imaging was performed. COMPARISON: CR XR KNEE LT 1V from 12/03/2021 FINDINGS: Single lateral view: Satisfactory position alignment of the components of the prosthesis. No fractures or loosening evide nt. IMPRESSION: DATA REPOSITORY: RADIATION DOSE DELIVERED:
== END 2022-02-08 08:18 | disposition home or self-care (01) ==
LOC: DIORS 08:17
PROVIDERS: PCP Family Medicine; Referring Provider Family Medicine; Visit Provider Student in an Organized Health Care Education/Training Program
DX: Z96.652 Presence of left artificial knee joint (principal); Z47.1 Aftercare following joint replacement surgery
CPT/HCPCS: 73560; 77073

== ENCOUNTER → 2022-02-21 08:54 | Outpatient (BNVA) | payer MEDICARE, SELFPAY | PROVIDERS: PCP Family Medicine; Referring Provider Family Medicine; Visit Provider Student in an Organized Health Care Education/Training Program | DX: Z47.1 Aftercare following joint replacement surgery (principal); Z96.652 Presence of left artificial knee joint ==

== ENCOUNTER → 2022-03-07 09:11 | Outpatient (BNVA) | payer MEDICARE, SELFPAY | PROVIDERS: PCP Family Medicine; Referring Provider Family Medicine; Visit Provider Student in an Organized Health Care Education/Training Program | DX: Z47.1 Aftercare following joint replacement surgery (principal); Z96.652 Presence of left artificial knee joint ==

== ENCOUNTER 2022-04-04 01:38 | Outpatient (CLI) | payer MEDICARE, SELFPAY ==
--- NOTE | 2022-04-04 08:30 | DI.US_ITS ---
Exam(s) US LOWER EXTREMITY VENOUS LT EXAM: US LOWER EXTREMITY VENOUS LT CLINICAL HISTORY: ? DVT S/P LTKA,increased swelling, pain lt calf,m79.89 TECHNIQUE: Grayscale, color, and doppler imaging of the deep venous system of the left lower extremi ty was performed. COMPARISON: US POCUS EXAM from 01/29/2022 FINDINGS: There is no evidence of intraluminal thrombus and there is normal compression and augmentation demons trated within the common femoral vein, femoral vein, and popliteal vein. In the ipsilateral calf the interrogated veins also exhibit normal compression/ augmentation properti es. The ipsilateral saphenofemoral junction is patent. IMPRESSION: 1. No evidence of DVT in the left lower extremity. DATA REPOSITORY:
== END 2022-04-04 01:58 ==
LOC: DI 01:38
PROVIDERS: PCP Family Medicine; Visit Provider Student in an Organized Health Care Education/Training Program
DX: M79.89 Other specified soft tissue disorders (principal); Z96.652 Presence of left artificial knee joint
CPT/HCPCS: 93971

== ENCOUNTER → 2022-04-11 10:47 | Outpatient (BNVA) | payer MEDICARE, SELFPAY | PROVIDERS: PCP Family Medicine; Referring Provider Family Medicine; Visit Provider Student in an Organized Health Care Education/Training Program | DX: Z47.1 Aftercare following joint replacement surgery (principal); Z96.652 Presence of left artificial knee joint; M65.352 Trigger finger, left little finger; M65.4 Radial styloid tenosynovitis [de Quervain]; S86.112A Strain of other muscle(s) and tendon(s) of posterior muscle group at lower leg level, left leg, initial encounter; X58.XXXA Exposure to other specified factors, initial encounter | CPT/HCPCS: 20550; J1030 ==

== ENCOUNTER → 2022-05-09 10:58 | Outpatient (BNVA) | payer MEDICARE, SELFPAY | PROVIDERS: PCP Family Medicine; Referring Provider Family Medicine; Visit Provider Physician Assistant | DX: S86.112D Strain of other muscle(s) and tendon(s) of posterior muscle group at lower leg level, left leg, subsequent encounter (principal); X58.XXXD Exposure to other specified factors, subsequent encounter; M65.352 Trigger finger, left little finger; M65.4 Radial styloid tenosynovitis [de Quervain]; Z96.652 Presence of left artificial knee joint | CPT/HCPCS: 99212 ==

== ENCOUNTER 2022-07-19 09:52 | Outpatient (CLI) | payer MEDICARE, SELFPAY ==
--- NOTE | 2022-07-19 08:56 | DI.RAD_ITS ---
Exam(s) XR KNEE LT 4V AP,LAT,DELIA,PAT EXAM: XR KNEE LT 4V AP,LAT,DELIA,PAT INDICATION: left knee pain. COMPARISON: CR XR KNEE LT 4V AP,LAT,DELIA,PAT from 12/25/2020 CR XR KNEE LT 1V from 12/03/2021 CR XR STANDING ALIGNMENT from 02/08/2022 CR XR KNEE LT 1V from 02/08/2022 TECHNIQUE: 2D digital imaging was performed. Two views. FINDINGS: There has been no change in the alignment of the femoral and tibial components of the knee prosthesis . There is lateral subluxation of the patella. There is a small adjacent lateral bony density. The re is some anterior soft tissue swelling. A small joint effusion is seen. DATA REPOSITORY: RADIATION DOSE DELIVERED:
== END 2022-07-19 09:53 | disposition home or self-care (01) ==
LOC: DIORS 09:52
PROVIDERS: PCP Family Medicine; Referring Provider Family Medicine; Visit Provider Physician Assistant
DX: Z96.652 Presence of left artificial knee joint (principal); M25.462 Effusion, left knee; S83.012A Lateral subluxation of left patella, initial encounter; X58.XXXA Exposure to other specified factors, initial encounter
CPT/HCPCS: 99213; 73564

== ENCOUNTER → 2022-09-16 13:18 | Outpatient (BNVA) | payer MEDICARE, SELFPAY | PROVIDERS: PCP Family Medicine; Referring Provider Family Medicine; Visit Provider Student in an Organized Health Care Education/Training Program | DX: Z47.1 Aftercare following joint replacement surgery (principal); Z96.652 Presence of left artificial knee joint | CPT/HCPCS: 99213 ==

== ENCOUNTER → 2022-11-22 08:34 | Outpatient (BNVA) | payer MEDICARE, SELFPAY | PROVIDERS: PCP Family Medicine; Referring Provider Family Medicine; Visit Provider Student in an Organized Health Care Education/Training Program | DX: M65.4 Radial styloid tenosynovitis [de Quervain] (principal); M23.8X2 Other internal derangements of left knee; T84.84XA Pain due to internal orthopedic prosthetic devices, implants and grafts, initial encounter; Z96.652 Presence of left artificial knee joint | CPT/HCPCS: 20550; J1030 ==

== ENCOUNTER → 2023-03-13 10:08 | Outpatient (BNVA) | payer MEDICARE, SELFPAY | PROVIDERS: PCP Family Medicine; Referring Provider Family Medicine; Visit Provider Surgery | DX: L82.0 Inflamed seborrheic keratosis (principal); L91.8 Other hypertrophic disorders of the skin; L57.0 Actinic keratosis; D64.9 Anemia, unspecified; D12.6 Benign neoplasm of colon, unspecified | CPT/HCPCS: 11200; 11201; 17110; 99214 ==

== ENCOUNTER → 2023-04-03 08:52 | Outpatient (BNVA) | payer MEDICARE, SELFPAY | PROVIDERS: PCP Family Medicine; Referring Provider Family Medicine; Visit Provider Surgery | DX: L57.0 Actinic keratosis (principal); L82.0 Inflamed seborrheic keratosis; L91.8 Other hypertrophic disorders of the skin | CPT/HCPCS: 11300; 11306 ==

== ENCOUNTER 2023-04-03 09:25 | Outpatient (REF) | payer MEDICARE, SELFPAY ==
--- NOTE | 2023-04-03 09:30 | SKI_PTH ---
PATIENT: Hilton Mauro LOC: [facility] U#:[id number] AGE/SX: 68/M ROOM: RE04/03/[address]: Becca Guzman : 1955 BED: DIS: 04/03/2023 SPEC #: [id number] RECD: 04/03/23 12:55 STATUS: SALINA OLIVAREZ #: [id number] CECILIA: 04/03/23 09:[address]: Becca Guzman DEPT: Surgical Specimen RECD BY: Tayler Hanson ENTERED: 04/03/23 12:56 SP TYPE: MARTA MARTINEZ DR: Suresh Jaime Tissues: 1 - SKIN BIOPSY(SHAVE/PUNCH) Procedures: SKIN LEVEL 4 Comments: [id number]
== END 2023-04-03 09:26 | disposition home or self-care (01) ==
LOC: LBN 09:25
PROVIDERS: PCP Family Medicine; Visit Provider Surgery
DX: L82.1 Other seborrheic keratosis (principal)
CPT/HCPCS: 88305

== ENCOUNTER → 2023-04-17 14:07 | Outpatient (BNVA) | payer MEDICARE, SELFPAY | PROVIDERS: PCP Family Medicine; Referring Provider Family Medicine; Visit Provider Surgery | DX: Z48.817 Encounter for surgical aftercare following surgery on the skin and subcutaneous tissue (principal); L91.8 Other hypertrophic disorders of the skin; Z48.02 Encounter for removal of sutures ==

== ENCOUNTER → 2023-05-06 09:23 | Outpatient (BNVA) | payer MEDICARE, SELFPAY | PROVIDERS: PCP Family Medicine; Referring Provider Family Medicine; Visit Provider Podiatrist | DX: G57.81 Other specified mononeuropathies of right lower limb (principal); M79.671 Pain in right foot; M79.672 Pain in left foot | CPT/HCPCS: 20550; 64450; J0702 ==

== ENCOUNTER → 2023-05-12 04:21 | Outpatient (CLI) | payer MEDICARE, SELFPAY ==
--- NOTE | 2023-05-12 08:56 | DI.RAD_ITS ---
Exam(s) XR FOOT RT COMPLETE EXAM: XR FOOT RT COMPLETE CLINICAL HISTORY: Pain in right foot,m79.671. TECHNIQUE: 2D digital imaging was performed. Three views. COMPARISON: No exams were available for comparison FINDINGS: BONES: No acute fracture is present. No bony destructive lesion is seen. Heel spurs. Spurring at do rsum of talus. Prominent posterior spur of the calcaneus. JOINTS: No dislocation present. Severe degenerative changes 2nd tarsal metatarsal joint. Mild degen erative changes navicular cuneiform joint. SOFT TISSUE: Normal. IMPRESSION: Degenerative changes and heel spurs. DATA REPOSITORY: RADIATION DOSE DELIVERED:
--- NOTE | 2023-05-12 08:56 | DI.RAD_ITS ---
Exam(s) XR FOOT LT COMPLETE EXAM: XR FOOT LT COMPLETE CLINICAL HISTORY: Pain in left foot,m79.672. TECHNIQUE: 2D digital imaging was performed. Three views. COMPARISON: CR XR FOOT RT COMPLETE from 05/12/2023 FINDINGS: BONES: No acute fracture is present. No bony destructive lesion is seen. Heel spurs. Dorsal spurri ng at the talus. JOINTS: No dislocation present. Severe degenerative changes are noted at the 2nd tarsal metatarsal joint and posterior talocalcaneal joint. Prominent posterior ossicle. Spurring at the anterior tibi otalar joint. SOFT TISSUE: Vascular calcifications. IMPRESSION: Degenerative changes, greatest at the talocalcaneal joint. DATA REPOSITORY: RADIATION DOSE DELIVERED:
== END ==
PROVIDERS: PCP Family Medicine; Visit Provider Podiatrist
DX: M19.072 Primary osteoarthritis, left ankle and foot (principal); M19.071 Primary osteoarthritis, right ankle and foot
CPT/HCPCS: 73630; J1030

== ENCOUNTER → 2023-05-28 08:55 | Outpatient (BNVA) | payer MEDICARE, SELFPAY | PROVIDERS: PCP Family Medicine; Referring Provider Family Medicine; Visit Provider Podiatrist | DX: G57.81 Other specified mononeuropathies of right lower limb; M79.671 Pain in right foot; M79.672 Pain in left foot | CPT/HCPCS: 99214 ==

== ENCOUNTER → 2023-07-18 08:28 | Outpatient (BNVA) | payer MEDICARE, SELFPAY | PROVIDERS: PCP Family Medicine; Referring Provider Family Medicine | DX: M65.4 Radial styloid tenosynovitis [de Quervain] (principal) | CPT/HCPCS: 99212 ==

== ENCOUNTER → 2023-08-20 04:04 | Outpatient (CLI) | payer MEDICARE, SELFPAY ==
--- NOTE | 2023-08-20 | DI.US_ITS ---
Exam(s) US ABDOMEN EXAM: US ABDOMEN CLINICAL HISTORY: K76.0 Fatty Liver, ? Cirrhosis or splenomagaly in setting of TECHNIQUE: Ultrasound abdomen performed using standard protocol. COMPARISON: No priors for comparison. FINDINGS: ABDOMINAL AORTA AND IVC: Visualized portions normal caliber. PANCREAS: Normal where visualized. LIVER: There is diffuse increased echogenicity of the liver consistent with fatty infiltration. The liver measures 17.5 cm long. Hepatopetal flow in the Portal Vein. GALLBLADDER:No evidence of cholelithiasis. No evidence of wall thickening. No pericholecystic fluid i dentified. BILIARY SYSTEM: No intrahepatic biliary ductal dilation. The common bile duct could not be seen due t o overlying bowel gas. BYRNE'S SIGN: Negative. KIDNEYS: Kidneys are symmetric in size. No evidence of renal calculi. No evidence of hydronephrosis. No renal mass or cyst identified. SPLEEN: Not enlarged. ASCITES: None seen. IMPRESSION: Hepatic steatosis and mild hepatomegaly. DATA REPOSITORY:
== END ==
PROVIDERS: PCP Family Medicine; Visit Provider Family Medicine
DX: K76.0 Fatty (change of) liver, not elsewhere classified (principal)
CPT/HCPCS: 76700

== ENCOUNTER 2023-09-26 10:22 | Outpatient (CLI) | payer MEDICARE, SELFPAY | END 2023-09-26 10:23 | disposition home or self-care (01) | LOC: DIORS 10:23 | PROVIDERS: PCP Family Medicine; Referring Provider Family Medicine; Visit Provider Physician Assistant | DX: M70.62 Trochanteric bursitis, left hip (principal); Z96.642 Presence of left artificial hip joint | CPT/HCPCS: 20610; J1010 ==

== ENCOUNTER → 2023-11-20 11:13 | Outpatient (BNVA) | payer MEDICARE, SELFPAY | PROVIDERS: PCP Family Medicine; Referring Provider Family Medicine; Visit Provider Student in an Organized Health Care Education/Training Program | DX: M65.4 Radial styloid tenosynovitis [de Quervain] (principal) | CPT/HCPCS: 20550; J1010 ==

== ENCOUNTER → 2024-04-05 12:53 | Outpatient (BNVA) | payer MEDICARE, SELFPAY | PROVIDERS: PCP Family Medicine; Referring Provider Family Medicine; Visit Provider Student in an Organized Health Care Education/Training Program | DX: M65.4 Radial styloid tenosynovitis [de Quervain] (principal) | CPT/HCPCS: 20605; J1010 ==

== ENCOUNTER → 2024-07-30 08:20 | Outpatient (BNVA) | payer MEDICARE, SELFPAY | PROVIDERS: PCP Family Medicine; Referring Provider Family Medicine; Visit Provider Physician Assistant | DX: M65.4 Radial styloid tenosynovitis [de Quervain] (principal); G56.01 Carpal tunnel syndrome, right upper limb | CPT/HCPCS: 20550; 99213; J1010 ==

== ENCOUNTER → 2025-02-17 10:18 | Outpatient (BNVA) | payer MEDICARE, SELFPAY | PROVIDERS: PCP Family Medicine; Referring Provider Family Medicine; Visit Provider Physician Assistant | DX: M70.62 Trochanteric bursitis, left hip (principal) | CPT/HCPCS: 99213 ==

== ENCOUNTER 2025-03-09 10:02 | Day surgery (SDC) | payer MEDICARE, SELFPAY ==
--- NOTE | 2025-03-09 08:21 | W.ANESPRE ---
General Info Date of Service Date Performed: 03/09/25 Height: 5 ft 5 in Weight: 117.027 kg Body Mass Index (BMI): 42.9 Surgical Procedure: Operation Date: 03/09/25 13:40 Proposed Procedure Side Surgeon p Wrist ECTR Right River Corado MD s Dequervains Release Right River Corado MD Meds Allergies and Home Medications Allergies Allergy/AdvReac Type Severity Reaction Status Date / Time atorvastatin calcium (From AdvReac Per pt, Verified 03/09/25 11:06 Lipitor) states myalgia hydrochlorothiazide AdvReac Per pt. Verified 03/09/25 11:06 states: affects his spleen causing jaundice, and h Home Medication ?Medication ?Instructions ?Recorded Nitrostat 0.4 mg sublingual tablet 0.4 mg sublingual DIRECTED 03/17/17 (nitroglycerin) atenolol 50 mg tablet 25 mg PO BID 03/17/17 lisinopril 20 mg tablet 20 mg PO DAILY 03/17/17 multivitamin 1 ea PO DAILY 03/17/17 clopidogrel 75 mg tablet 75 mg PO DAILY 04/08/23 ezetimibe 10 mg-simvastatin 80 mg 1 tab PO DAILY 05/06/23 tablet levothyroxine 75 mcg capsule 50 mcg PO DAILY 04/06/24 aspirin 81 mg tablet,delayed 81 mg PO DAILY 07/30/24 release cholecalciferol (vitamin D3) 50 50 mcg PO DAILY 07/30/24 mcg (2,000 unit) capsule acetaminophen 500 mg tablet 500 mg PO ONCE 03/09/25 (Tylenol Extra Strength) hydrocodone 5 mg-acetaminophen 325 1 tab PO Q6H PRN pain #6 tabs 03/09/25 mg tablet Current Visit Medications: Current Medications Generic Name Dose Route Start Last Admin Trade Name Freq PRN Reason Stop Dose Admin Acetaminophen 1,000 mg 03/09/25 06:00 Acetaminophen 500 Mg Tab PO 03/09/25 23:59 PREOP OSVALDO Celecoxib 400 mg 03/09/25 06:00 Celecoxib 200 Mg Cap PO 03/09/25 23:59 PREOP OSVALDO Ringer's Solution 1,000 mls @ 80 mls/hr 03/09/25 06:00 IV 03/09/25 23:59 INFUSION OSVALDO Cefazolin Sodium 3,000 mg/ 100 mls @ 200 mls/hr 03/09/25 06:00 Sodium Chloride IV 03/09/25 23:59 PREOP OSVALDO Sodium Chloride 0 ml 03/09/25 06:00 Normal Saline Flush 10 Ml Syr IV 03/09/25 23:59 PRN PRN Sodium Chloride 0 ml 03/09/25 06:00 Normal Saline 10 Ml Vial IJ 03/09/25 23:59 DIRECTED PRN Sterile Water 0 ml 03/09/25 06:00 Water,Injection,Sterile 10 Ml Vial IJ 03/09/25 23:59 DIRECTED PRN PFSH Active Problems Active Problems: Problem Status Onset Code Carpal tunnel syndrome, right Acute G56.01 Trochanteric bursitis, left hip Acute M70.62 History of total left hip arthroplasty Acute Z96.642 De Quervain's tenosynovitis, right Acute M65.4 Interdigital neuroma of right foot Acute G57.81 Pain in right foot Acute M79.671 Pain in left foot Acute M79.672 Diastolic dysfunction Acute I51.89 Seasonal allergies Acute J30.2 Actinic keratoses Acute L57.0 Seborrheic keratosis, inflamed Acute L82.0 Inflamed skin tag Acute L91.8 Painful total knee replacement, left Acute T84.84XA, Z96.652 Crepitus of joint of left knee Acute M23.8X2 De Quervain's tenosynovitis, left Acute M65.4 Trigger finger, left little finger Acute M65.352 Gastrocnemius strain, left Acute S86.112A Swelling of calf Acute M79.89 History of total left knee replacement (TKR) Acute 01/29/22 Z96.652 Tear of right hamstring Acute 04/25/21 S76.311A Other injury of muscle and tendon of long flexor muscle of toe at ankle and foot level, left foot, initial encounter Acute S96.092A Os trigonum syndrome Acute Q68.8 Loose body in left ankle Acute M24.072 Left knee DJD Acute M17.12 Maltracking of left patella Acute M22.8X2 Medical History Medical History Hearing loss in right ear Age related cataract Rotator cuff syndrome Tinnitus, bilateral Chronic fatigue Fatty liver Low testosterone Chronic pain Anemia Cataracts, bilateral Rotator cuff disorder Obesity Tubular adenoma of colon Mild hypertension Undescended testicle Hyperlipidemia Eczema ASCVD (arteriosclerotic cardiovascular disease) Mild diastolic dysfunction Sleep apnea CPAP Medical History Comments:: 01/29/22 uses CPAP nightly. 01/29/22 pt reports he has expereinced some delay coming out of anesthesia. Surgical History Surgical History H/O rotator cuff surgery H/O bilateral hip replacements both R and L done, separately History of arthroplasty of left knee (~01/2022) History of bilateral cataract extraction Hx of heart artery stent (~2013) 2000 2010 Repair, Undescended Testicle Coronary Stent 01/29/22 pt reports he has had 4 stents, 2000, 2010, 2013 Biopsy, Soft Tissue (04/03/17) left arm - benign verruciform keratosis Tobacco Smoking/Tobacco Use Status: Never Alcohol Alcohol Intake: current Alcohol intake frequency: 0-2 drinks per day Alcohol type: beer Substance Use Substance use: Never Substance use type: does not use Vital Signs and Lab Results Vital Signs Most Recent Vital Signs in EMR: Temp Pulse Resp BP Pulse Ox 36.7 C 55 L 16 132/67 98 03/09/25 11:02 03/09/25 11:02 03/09/25 11:02 03/09/25 11:02 03/09/25 11:02 Imaging and Studies Imaging and Studies Study information below may be from another EMR and interpreted by another provider. Please see original notes in EMR for more complete details. Stress Test Summary: 01/18/2022: Myocardial perfusion images show infero-apical fixed defect, no reversible ischemia. No significant changes from previous. Echocardiogram Summary: 08/28/2021: EF 59%, Grade II diastolic dysfunction Anesthesia Assessment and Plan Anesthesia History Personal History: No History of Anesthesia Complications Family History: No Family History of Anesthesia Complications Exercise Tolerance Exercise Tolerance: Metabolic Equivalents>4 Cardiac & Pulmonary Exam Cardiac Exam: Normal S1/S2 Heart Sounds Pulmonary Exam: Clear Bilateral Breath Sounds Implantable Cardiac Device Does patient have a Pacemaker or an ICD?: No Airway Exam Known Difficult Airway: No Mallampati Class: 3 Mouth Opening: Narrow (< 3cm) Thyromental Distance: Less than 3 cm Neck Range of Motion: Full ROM Neck Circumference: Thick Teeth Condition: Normal Dentition ASA Classification ASA Score: ASA 3 Emergency Case?: No NPO Status NPO Status: NPO Clears >2 hours, Solids >8 hours Anesthesia Plan Resuscitation Status: Full Code Anesthesia Technique: General Anesthesia Airway Planned: Natural Airway Monitors Used: Standard Monitors Preoperative Comments:: 70 yo for ECTR. Sig PMHx: HTN (lisinopril), ASCVD (atenolol, clopidogrel - none for 7 days. stents. nitro, never uses), NIYA (CPAP), hypothyroid (on replacement). Never smoker, occ EtOH.
--- NOTE | 2025-03-09 10:41 | W.PREOPHP ---
Assessment and Plan Assessment and plan (1) Carpal tunnel syndrome, right: Status: Acute (2) De Quervain's tenosynovitis, right: Status: Acute Assessment and plan: Luis M is a 70-year-old male who has right carpal tunnel syndrome and right de Quervain's tenosynovitis. The carpal tunnel has been persistent despite some nighttime bracing and the de Quervain's has recurred despite injections x 3. At this point he would like to proceed with more definitive treatment. Therefore I offered carpal tunnel release on the right side along with de Quervain's release. I reviewed the technical details of each procedure. I discussed the risk to include bleeding, infection, pain, stiffness, incomplete release, need for repeat procedures, tendon subluxation, damage to nerves or vessels. Despite these risks, he elects to proceed History of Present Illness History of Present Illness Chief Complaint: Right Carpal Tunnel Syndrome and Right DeQuervain's Tenosynovitis Narrative: Luis M is a 70-year-old male who has carpal tunnel syndrome about the right side as well as ongoing de Quervain's tenosynovitis. He has had multiple injections for the de Quervain's but continues to have recurrence. Therefore, I did offer surgical release. He is here today for that procedure. He also has ongoing carpal tunnel syndrome about the right side and would like that surgically treated. He denies any recent sick contacts. No chest pain or shortness of breath. No recent cough, cold, respiratory symptoms. Review of Systems All systems reviewed & are unremarkable except as noted in HPI and below PFSH All Active Problems Carpal tunnel syndrome, right (Acute) Trochanteric bursitis, left hip (Acute) DEPO MEDROL 09/26/23 History of total left hip arthroplasty (Acute) De Quervain's tenosynovitis, right (Acute) Steroid injection: 07/30/2024; 11/20/2023; 05/12/2023 Interdigital neuroma of right foot (Acute) Pain in right foot (Acute) Pain in left foot (Acute) Diastolic dysfunction (Acute) Seasonal allergies (Acute) Actinic keratoses (Acute) Seborrheic keratosis, inflamed (Acute) per referral scalp Inflamed skin tag (Acute) Painful total knee replacement, left (Acute) Crepitus of joint of left knee (Acute) De Quervain's tenosynovitis, left (Acute) Injections: 04/11/22, 04/05/24 Trigger finger, left little finger (Acute) Gastrocnemius strain, left (Acute) Swelling of calf (Acute) History of total left knee replacement (TKR) (Acute 01/29/22) Tear of right hamstring (Acute 04/25/21) Other injury of muscle and tendon of long flexor muscle of toe at ankle and foot level, left foot, initial encounter (Acute) Os trigonum syndrome (Acute) Loose body in left ankle (Acute) Left knee DJD (Acute) Maltracking of left patella (Acute) Medical History Hearing loss in right ear Age related cataract Rotator cuff syndrome Tinnitus, bilateral Chronic fatigue Fatty liver Low testosterone Chronic pain Anemia Cataracts, bilateral Rotator cuff disorder Obesity Tubular adenoma of colon Mild hypertension Undescended testicle Hyperlipidemia Eczema ASCVD (arteriosclerotic cardiovascular disease) Mild diastolic dysfunction Sleep apnea CPAP Surgical History H/O rotator cuff surgery H/O bilateral hip replacements both R and L done, separately History of arthroplasty of left knee (~01/2022) History of bilateral cataract extraction Hx of heart artery stent (~2013) 2000 2010 Repair, Undescended Testicle Coronary Stent 01/29/22 pt reports he has had 4 stents, 2000, 2010, 2013 Biopsy, Soft Tissue (04/03/17) left arm - benign verruciform keratosis Family History Other Essential hypertension Heart disease Hyperlipidemia Social History Smoking/Tobacco Use Status: Never Smoking risk assessment performed?: Yes Alcohol Intake: current Alcohol Intake frequency: 0-2 drinks per day Alcohol type: beer Drug use: Never Substance use type: does not use Details: alcohol: T-7 Do you feel safe at home: Yes Do you feel safe in your relationship?: Yes Meds Allergies and Home Medications Allergies Allergy/AdvReac Type Severity Reaction Status Date / Time atorvastatin calcium (From AdvReac Per pt, Verified 03/09/25 11:06 Lipitor) states myalgia hydrochlorothiazide AdvReac Per pt. Verified 03/09/25 11:06 states: affects his spleen causing jaundice, and h Home Medications ?Medication ?Instructions ?Recorded ?Confirmed ?Type Nitrostat 0.4 mg sublingual tablet 0.4 mg sublingual DIRECTED 03/17/17 03/02/25 History (nitroglycerin) atenolol 50 mg tablet 25 mg PO BID 03/17/17 03/02/25 History lisinopril 20 mg tablet 20 mg PO DAILY 03/17/17 03/02/25 History multivitamin 1 ea PO DAILY 03/17/17 03/02/25 History clopidogrel 75 mg tablet 75 mg PO DAILY 04/08/23 03/02/25 History ezetimibe 10 mg-simvastatin 80 mg 1 tab PO DAILY 05/06/23 03/02/25 History tablet levothyroxine 75 mcg capsule 50 mcg PO DAILY 04/06/24 03/02/25 History aspirin 81 mg tablet,delayed 81 mg PO DAILY 07/30/24 03/02/25 History release cholecalciferol (vitamin D3) 50 50 mcg PO DAILY 07/30/24 03/02/25 History mcg (2,000 unit) capsule acetaminophen 500 mg tablet 500 mg PO ONCE 03/09/25 03/09/25 History (Tylenol Extra Strength) hydrocodone 5 mg-acetaminophen 325 1 tab PO Q6H PRN pain #6 tabs 03/09/25 Rx mg tablet Exam Const General: cooperative, healthy appearing, comfortable and no acute distress Resp Effort & Inspection: normal respiratory effort Auscultation: clear to auscultation bilaterally Cardio Rate: regular rate Rhythm: regular rhythm
[2025-03-09 11:02] VITALS: BP 132/67; PULSE 55; RESP 16; TEMP 36.7; O2SAT 98
[2025-03-09] MEDS: Acetaminophen 500 MG TAB 1000 MG PO (11:15)
[2025-03-09] MEDS: Celecoxib 200 MG CAP 400 MG PO (11:15)
--- NOTE | 2025-03-09 11:15 | PDOC.DSDIS_ITS ---
Date of service: 03/09/25 Discharge Plan Disposition Patient Disposition: Home Condition: Good Discharge Details Reason For Visit: R ECTR/R Detiararvain's Release Attending Provider: River Corado Primary Care Provider: Joslyn Mtz Home Meds and New Rx's Prescriptions: New hydrocodone-acetaminophen 5-325 mg tablet 1 tab PO Q6H PRN (Reason: pain) Qty: 6 0RF Continued ezetimibe-simvastatin 10-80 mg tablet 1 tab PO DAILY levothyroxine 75 mcg capsule 50 mcg PO DAILY cholecalciferol (vitamin D3) 50 mcg (2,000 unit) capsule 50 mcg PO DAILY aspirin 81 mg tablet,delayed release (DR/EC) 81 mg PO DAILY lisinopril 20 MG tablet 20 mg PO DAILY nitroglycerin [Nitrostat] 0.4 MG tablet, sublingual 0.4 mg Sublingual DIRECTED multivitamin 1 EACH capsule 1 ea PO DAILY atenolol 50 MG tablet 25 mg PO BID clopidogrel 75 mg tablet 75 mg PO DAILY acetaminophen [Tylenol Extra Strength] 500 mg tablet 500 mg PO ONCE Discharge Instructions Additional Instructions: Scott's Discharge Instructions Activity: You should keep the hand elevated as much as possible for the first few days. You may use the other fingers as tolerated but avoid trying to do too much too soon. You may perform light activities with the splint in place. Dressing/Cast: Your splint should stay in place at all times. Do NOT get it wet. You may loosen the TRINITY wrap if you feel it is too tight and then rewrap more loosely. Medications: - You should take Tylenol and Ibuprofen for baseline pain control. - You have Hydrocodone for breakthrough pain. - You may apply ice over the thumb. Follow-up: 7-10 days Stand Alone Forms: Mickie Salazar [facility], Portal Information Referrals: River Corado MD [ [facility] STAFF PHYSICIAN, Orthopaedic Surgical] Activity:: Activity as Tolerated Remove Dressings/Wound Care:: Do Not Remove Shower/Bathe:: Cover Diet:: As Tolerated Discharge Orders Discharge Orders: Discharge Order (Routine); Ordered 03/09/25 Ordered By: Mitchel Casas DS: Diagnosis Discharge Diagnosis (1) Carpal tunnel syndrome, right: Status: Acute (2) De Quervain's tenosynovitis, right: Status: Acute
[2025-03-09] MEDS: Lactated Ringers 1,000 ML 80 ML IV (11:20)
[2025-03-09 12:01] VITALS: BMI 42.9
[2025-03-09] MEDS: ceFAZolin 3,000 MG in Normal Saline 100 ML 200 MG IV (12:21)
[2025-03-09] MEDS: Lidocaine 1% Pres-Free W/EPI 1/200,000 10 ML VIAL (12:40)
[2025-03-09 12:52] VITALS: BP 99/42; PULSE 56; RESP 16; TEMP 36; O2SAT 95
--- NOTE | 2025-03-09 13:09 | W.ANESPOSTOP ---
Postoperative Evaluation Date, Time and Location Date Performed: 03/09/25 Time Performed: 13:09 Patient Location: Day Surgery Unit Vital Signs Most Recent Imported Vital Signs: Most Recent Vital Signs Temp Pulse Resp BP Pulse Ox 36.0 C L 56 L 16 99/42 L 95 03/09/25 12:52 03/09/25 12:52 03/09/25 12:52 03/09/25 12:52 03/09/25 12:52 Pain Score Most Recent Pain Score: Most Recent Pain Score Pain Level 0 03/09/25 11:02 Assessment Mental Status: Awake (Alert & Oriented to Patient Baseline) Airway and Respiratory Function: Patent airway with normal (patient baseline) respiratory exam Cardiovascular Function: Hemodynamically Stable Hydration Status: Adequately Hydrated Nausea & Vomiting: No Nausea or Vomiting Pain: Pt. Denies Any Pain Peripheral Nerve Block: Patient did not receive a nerve block
[2025-03-09 13:15] VITALS: BP 107/54; PULSE 57; RESP 16; TEMP 36.6; O2SAT 96
--- NOTE | 2025-03-09 14:40 | W.PM.OP ---
Operative Note Operative Note PRE-OP DIAGNOSIS: Right Carpal Tunnel Syndrome Right de Quervain's tenosynovitis POST-OP DIAGNOSIS: same PROCEDURE: Right Endoscopic Carpal Tunnel Release Right first extensor compartment release SURGEON: River Corado ANESTHESIA TYPE: General:No Airway Refer to Anesthesia Record ESTIMATED BLOOD LOSS: 0 PATHOLOGY: none sent TOURNIQUET TIME: 14 COMPLICATIONS: None Patient was transported to: same day Patient's condition: stable Indications: I have seen Luis M in clinic for symptoms of carpal tunnel syndrome along with de Quervain's tenosynovitis. The numbness, tingling, and pain limited function along with the pain about the thumb which had failed multiple injections. Clinical exam findings confirmed these diagnoses. Nonoperative measures such as bracing, time, activity modifications had been tried but disability and pain persisted. I discussed carpal tunnel release as well as first extensor compartment, de Quervain's, release with the patient. I reviewed the risks of the procedure to include, but not limited to, bleeding, infection, pain, stiffness, incomplete release, tendon subluxation, damage to nerves or vessels, persistent numbness, recurrence. Despite these risks, the patient elected to proceed. Findings: There was tightened carpal tunnel. This was dilated and released successfully with the endoscopic with increased space within the tunnel. The antebrachial fascia was released proximally freeing the median nerve at the wrist. The first extensor compartment was released without difficulty. There was synovitis around the EPB tendon but no separate compartment. Procedure Description: Luis M was greeted in the preoperative holding area where the correct side was identified and marked. The consent was reviewed with the patient and signed. The history and physical was updated. All questions were answered. He was taken back to the operating room. The patient was placed into the supine position on the operating room table with the right arm on an arm board. A nonsterile tourniquet was placed high onto the arm. All bony prominences were well padded. Prophylactic antibiotics in the form of Cefazolin were administered. The right arm was then prepped with Chloraprep and draped in a standard fashion with stockinette and extremity drape. A timeout to confirm correct identity, side and site, procedure, allergies, anesthesia, and medical concerns was performed. The surgical site was marked in the volar wrist creases in line with the radial border of the fourth ray as well as a longitudinal incision overlying the radial styloid and the first extensor compartment. These areas were anesthetized with 1% Lidocaine with Epinephrine, buffered with Sodium Bicarbonate. The limb was then exsanguinated with an Esmarch. The skin was incised with a 15 blade, approximately 1cm. The skin only was cut and the deeper tissue was dissected bluntly with a tenotomy scissor, avoiding passing nerve and venous structures. The fascia was penetrated and opened bluntly. A two-prong skin hook was placed under this proximal fascial edge. A series of hamate finders were used to identify and dilate the carpal tunnel. Synovial elevator was used to free synovial attachments to the underside of the transverse carpal ligament. My thumb was kept in the palm to rica the distal extent of the carpal tunnel and correctly position the hand. The Microaire endoscope was inserted without difficulty and without resistance. Excellent visualization showed horizontally running fibers of the transverse carpal ligament (TCL). The distal extent of the TCL was visualized and the end of the scope palpated with the thumb. The blade was elevated and withdrawn from distal to proximal. The TCL was split into two flaps. The endoscope was reinserted to confirm complete release and any remnant ligament was incised. The scope was withdrawn and the proximal aspect of the carpal tunnel was grossly inspected and appeared release with the median nerve visible. The antebrachial fascia at the level of the wrist was then freed from the overlying skin and then the underlying median nerve with blunt dissection. This was transected longitudinally for about 3cm proximal to the wrist incision. The wound was then irrigated with easy flow of irrigant distally and proximally. The incision was closed with a single 4-0 Nylon suture. Attention was then turned to the first extensor compartment release. A 2 cm incision was made longitudinally over the radial styloid. The skin was incised only. The deep tissue subcutaneous fat was dissected with a tenotomy scissors trying to protect bridge of the superficial radial nerve. Any branches that were identified were retracted out of the way. The first compartment extensor tendons were then identified. The distal aspect of the first compartment was noted and were released. This release was performed more on the dorsal side to prevent tendon subluxation. The entirety of the first extensor compartment was then released. The slips of the abductor pollicis longus tendon were inspected. They removed to confirm the appropriate motion of the thumb. The extensor pollicis brevis tendon was then identified. There was no subcompartment. It was fully released and synovitis was resected. Traction on the tendon was also used to confirm appropriate extension of the thumb confirming the release of the appropriate tendon. The dorsal radial surface of the radius was once again inspected to make sure there is no other sub-compartments or other restrictions to tendon motion. The wound was then thoroughly irrigated. The deep tissue was closed with a 3-0 Vicryl. The skin was closed with a running subjective 4-0 Monocryl. The wounds were dressed with Xeroform, Gauze, Kerlix and Mekhi. The tourniquet was deflated with the initial dressing and held with some pressure. Blood flow returned easily to all digits with capillary refill less than 2 seconds. The patient tolerated the procedure well and was returned to the Same Day Surgery area in a stable condition suffering no known complication. Date of Procedure: 03/09/25
== END 2025-03-09 13:40 | disposition home or self-care (01) ==
PROVIDERS: Visit Provider Student in an Organized Health Care Education/Training Program
PROC: 01N54ZZ Release Median Nerve, Percutaneous Endoscopic Approach (ICD-10-PCS; CPT 29848; principal; 2025-03-09 13:30)
PROC: (CPT 25000; 2025-03-09 13:30)
DX: G56.01 Carpal tunnel syndrome, right upper limb (principal); M65.4 Radial styloid tenosynovitis [de Quervain]; I10 Essential (primary) hypertension; G47.33 Obstructive sleep apnea (adult) (pediatric)
CPT/HCPCS: 25000; 29848; J0690; J2004; J2250; J2704; J3010

== ENCOUNTER → 2025-03-18 09:44 | Outpatient (BNVA) | payer MEDICARE, SELFPAY | PROVIDERS: Referring Provider Family Medicine; Visit Provider Physician Assistant | DX: Z47.89 Encounter for other orthopedic aftercare (principal); G56.01 Carpal tunnel syndrome, right upper limb; M65.4 Radial styloid tenosynovitis [de Quervain] | CPT/HCPCS: 99024 ==